=== PATIENT | female | born 1990 | race American Indian/Alaskan Native ===

== ENCOUNTER 2019-05-14 13:52 | Outpatient (CLI) | payer MEDICAID ==
[2019-05-14 14:09] VITALS: BP 131/71
[2019-05-14] MEDS ORDERED: LACTATED RINGERS 1,000 ML IV ONE (14:09)
== END 2019-05-14 14:30 | disposition left against medical advice (07) ==
LOC: TRG 13:52
PROVIDERS: ATTEND Obstetrics & Gynecology
DX: O26.893 Other specified pregnancy related conditions, third trimester (principal); R10.30 Lower abdominal pain, unspecified; Z3A.38 38 weeks gestation of pregnancy
CPT/HCPCS: 59025; 96360; J7120